=== PATIENT | male | born 1950 | race Caucasian/White ===

== ENCOUNTER 2019-07-08 15:40 | Emergency (ER) | payer MEDICARE ==
[2019-07-08] MEDS ORDERED: NS 0.9% 1000 ML** 1,000 ML IV ONE (15:53)
--- NOTE | 2019-07-08 15:53 | ED ---
Syncope/Near Syncope - HPI Summary HPI Summary: This pt is a68 y/o male presenting to [facility] via EMS for syncopal episode today. EMS reports pt was with friends when they witnessed the pt who was sitting on a chair stare off into space and slump over to the right side. Friends called EMS. Upon EMS arrival to scene pt had no complaints and did not want to come to the hospital. Per EMS pt had blood pressure of 80s/40s. While in the ambulance after EMS administered fluids, pt had blood pressure of 108 systolic. Blood glucose is 99 per EMS. Pt states he did not have any chest pain, palpitations, SOB prior to syncope. Currently he denies any chest pain, palpitations, SOB, or any other symptoms after syncopal episode. Pt admits to drinking beers and using marijuana. He does not know how many beers he drank. Per EMS pt had 4 beers. He notes he does not use oxygen at home at baseline. - History Of Current Complaint Hx Obtained From: Patient, EMS Onset/Duration: Still Present Timing: Hours Context: Witnessed Activity At Onset: At Rest Aggravating Factor(s): Nothing Alleviating Factor(s): Nothing Associated Signs And Symptoms: Other - NEGATIVE: chest pain, palpitations, SOB - Allergies/Home Medications Allergies/Adverse Reactions: Allergies Allergy/AdvReac Type Severity Reaction Status Date / Time No Known Allergies Allergy Verified 07/08/19 16:53 Home Medications: Home Medications Atorvastatin* [Lipitor*] 40 mg PO DAILY 07/08/19 [History Confirmed 07/08/19] Doxycycline (NF) 20 mg PO DAILY 07/08/19 [History Confirmed 07/08/19] Lisinopril TAB* [Prinivil TAB*] 20 mg PO DAILY 07/08/19 [History Confirmed 07/08] metFORMIN* [Glucophage 500 MG TAB *] 500 mg PO BID 07/08/19 [History Confirmed 07/08/19] PMH/Surg Hx/FS Hx/Imm Hx Endocrine/Hematology History: Reports: Hx Diabetes Cardiovascular History: Reports: Hx Hypertension - Family History Known Family History: Negative: Cardiac Disease - Social History Alcohol Use: Occasionally Substance Use Type: Reports: Marijuana Smoking Status (MU): Former Smoker Review of Systems Negative: Fever, Chills Negative: Chest Pain Negative: Shortness Of Breath Positive: Syncope All Other Systems Reviewed And Are Negative: Yes Physical Exam - Summary Physical Exam Summary: VITAL SIGNS: Reviewed. GENERAL: Patient is a well-developed and nourished male who is lying comfortable in the stretcher. Patient is not in any acute respiratory distress. HEAD AND FACE: No signs of trauma. No ecchymosis, hematomas or skull depressions. No sinus tenderness. EYES: PERRLA, EOMI x 2, No injected conjunctiva, no nystagmus. EARS: Hearing grossly intact. Ear canals and tympanic membranes are within normal limits. MOUTH: Oropharynx within normal limits. NECK: Supple, trachea is midline, no adenopathy, no JVD, no carotid bruit, no c- spine tenderness, neck with full ROM. CHEST: Symmetric, no tenderness at palpation. LUNGS: Clear to auscultation bilaterally. No wheezing or crackles. CVS: Regular rate and rhythm, S1 and S2 present, no murmurs or gallops appreciated. ABDOMEN: Soft, non-tender. No signs of distention. No rebound, no guarding, and no masses palpated. Bowel sounds are normal. EXTREMITIES: FROM in all major joints, no edema, no cyanosis or clubbing. NEURO: Alert and oriented x 3. No acute neurological deficits. Speech is normal and follows commands. SKIN: Dry and warm. Triage Information Reviewed: Yes Vital Signs Reviewed: Yes Procedures - Sedation Patient Received Moderate/Deep Sedation with Procedure: No Diagnostics - Laboratory Result Diagrams: 07/08/19 16:04 07/08/19 16:04 Lab Statement: Any lab studies that have been ordered have been reviewed, and results considered in the medical decision making process. - Radiology Chest XR Radiology Interpretation Completed By: Radiologist Summary of Radiographic Findings: IMPRESSION: Hyperinflation. No active cardiopulmonary disease. Dr. Cabezas has reviewed this report. - CT Brain CT CT Interpretation Completed By: Radiologist Summary of CT Findings: IMPRESSION: No acute intracranial pathology. Diffuse involutional change. Dr. Cabezas has reviewed this report. - EKG 17:33 Cardiac Rate: NL - at 68 bpm EKG Rhythm: Sinus Rhythm Summary of EKG Findings: Normal sinus rhythm at [address] elevations. Course/Dx Assessment/Plan: This pt is a 68 y/o male presenting to [facility] via EMS for syncopal episode today. EMS reports pt was with friends when they witnessed the pt who was sitting on a chair stare off into space and slump over to the right side. Friends called EMS. Upon EMS arrival to scene pt had no complaints and did not want to come to the hospital. Per EMS pt had blood pressure of 80s/40s. While in the ambulance after EMS administered fluids, pt had blood pressure of 108 systolic. Blood glucose is 99 per EMS. Pt states he did not have any chest pain, palpitations, SOB prior to syncope. Currently he denies any chest pain, palpitations, SOB, or any other symptoms after syncopal episode. Pt admits to drinking beers and using marijuana. He does not know how many beers he drank. Per EMS pt had 4 beers. He notes he does not use oxygen at home at baseline. Blood test results without any significant abnormality except for WBCs of 11.2, slight anemia, chloride 100, lactic acid is 2.8, and serum alcohol of 88. I believe that the lactic acid is slightly elevated secondary to the alcohol. EKG is a normal sinus rhythm without ST elevations. Head CT shows no acute intracranial pathology. Chest x-ray impression: Hyperinflation. No active cardiopulmonary disease. In the ED course the patient is alert and oriented 3. Patient reports that hes been better therefore he doesnt want to get admitted to the hospitalist. Therefore the patient was signing AGAINST MEDICAL ADVICE. I extensively discussed with the patient the benefits and risk of leaving AMA. I also discussed the alternatives to leaving AMA, however, the patient still insist to leave the hospital AMA. The patient is clinically sober , free from distracting injury, appears to have intact insight and judgment and reason and in my opinion has the capacity to make decisions. Patient has full capacity and is cognitively intact. The patient presents with syncope, I have explained that I am concerned with these symptoms and may represent arrhythmia or . The patient verbalizes understanding of my concerns. I have also explained the results of the labs and even though they are normal the primary nurse and the charge nurse also strongly recommended that the patient should not leave AMA. Patient understands the risks of leaving AMA, which includes but is not restricted to . Patient signed the AMA form. Patient was also advised to return to the ED if he changes his mind or if the symptoms worsen or other symptoms appear. Patient understands and agrees. Again, I discussed all the findings and test results with the patient. Patient was instructed to return to the emergency room immediately if any of the symptoms return or worsen. Plan of care was discussed with the patient and understands and agrees. All questions were answered at patient satisfaction. There were no further complaints or concerns. Patient signed AMA and he was discharged AMA. - Diagnoses Provider Diagnoses: Syncope Discharge ED - Sign-Out/Discharge Documenting (check all that apply): Patient Departure - Against medical advice - Discharge Plan Condition: Stable Disposition: AGAINST MEDICAL ADVICE Referrals: Adolph Ortiz MD [Primary Care Provider] - - Billing Disposition and Condition Condition: STABLE Disposition: Against Medical Advice - Attestation Statements Document Initiated by Ferdinandibal: Yes Documenting Scribe: Luz Marina Alcantar Provider For Whom Abena is Documenting (Include Credential): Adolph Cabezas MD Scribe Attestation: Luz Marina Lara, scribed for Adolph Cabezas MD on 07/08/19 at 1829. Scribe Documentation Reviewed: Yes Provider Attestation: The documentation as recorded by the Luz Marina phan accurately reflects the service I personally performed and the decisions made by Adolph valladares MD Status of Scribe Document: Viewed
[2019-07-08 16:15] LABS: ABS Eosinophils 0.4 10^3/ul (0-0.6); ABS Lymphocytes 3.1 10^3/ul (1.0-4.8); ABS Neutrophils 6.7 10^3/ul (1.5-7.7); Eosinophil % 3.3 %; Hematocrit 39 % (42-52); Hemoglobin 13.4 g/dL (14.0-18.0); Lymphocyte % 27.2 %; Mean Corpuscular HGB Conc 34 g/dL (31-36); Mean Corpuscular Hemoglobin 34 pg (27-31); Mean Corpuscular Volume 98 fL (80-94); Mean Platelet Volume 6.8 fL (7.4-10.4); Platelet Count 335 10^3/uL (150-450); Red Blood Count 3.98 10^6 /uL (4.18-5.48); Red Cell Distribution Width 13 % (10-15); White Blood Count 11.2 10^3/uL (3.5-10.8)
[2019-07-08 16:19] LABS: Activated Partial Thrombo Time 29.4 seconds (26.0-38.0); INR 1.09 (0.82-1.09)
[2019-07-08 16:31] LABS: Albumin 4.2 g/dL (3.2-5.2); Albumin/Globulin Ratio 1.6 (1-3); BUN/Creatinine Ratio 11.1 (8-20); Calcium 9.1 mg/dL (8.6-10.3); EGFR African American 90.7 (>60); Globulin 2.6 g/dL (2-4); Magnesium 1.9 mg/dL (1.9-2.7); Potassium 3.8 mmol/L (3.5-5.0); Total Bilirubin 0.3 mg/dL (0.2-1.0); Total Protein 6.8 g/dL (6.4-8.9)
[2019-07-08 17:34] LABS: TSH (Thyroid Stimulating Horm) 2.53 mcIU/mL (0.34-5.60)
[2019-07-08 18:43] VITALS: BP 113/70
== END 2019-07-08 18:21 | disposition left against medical advice (07) ==
LOC: ED 15:40
DX: R55 Syncope and collapse (principal); E11.9 Type 2 diabetes mellitus without complications; I10 Essential (primary) hypertension; Z87.891 Personal history of nicotine dependence
CPT/HCPCS: 36415; 70450; 71046; 80053; 80320; 82140; 82550; 83605; 83735; 83880; 84443; 84484; 85025; 85610; 85730; 93005; 96360; 99284; G0480

== ENCOUNTER 2021-09-25 09:46 | Inpatient (IN) ==
[2021-09-25 11:29] LABS: ABS Eosinophils 0.2 10^3/ul (0-0.6); ABS Lymphocytes 1.1 10^3/ul (1.0-4.8); ABS Monocytes 0.8 10^3/ul (0-0.8); ABS Neutrophils 4.3 10^3/ul (1.5-7.7); Eosinophil % 2.8 %; Hematocrit 40 % (42-52); Hemoglobin 13.5 g/dL (14.0-18.0); Lymphocyte % 17.5 %; Mean Corpuscular HGB Conc 34 g/dL (31-36); Mean Corpuscular Hemoglobin 35 pg (27-31); Mean Corpuscular Volume 102 fL (80-94); Mean Platelet Volume 7.7 fL (7.4-10.4); Platelet Count 337 10^3/uL (150-450); Red Blood Count 3.88 10^6 /uL (4.18-5.48); Red Cell Distribution Width 13 % (10-15); White Blood Count 6.4 10^3/uL (3.5-10.8)
[2021-09-25 11:44] LABS: ALT 67 U/L (7-52); AST 64 U/L (13-39); Albumin 4.3 g/dL (3.2-5.2); Albumin/Globulin Ratio 1.4 (1-3); Alkaline Phosphatase 90 U/L (35-149); Anion Gap 11 mmol/L (2-11); Blood Urea Nitrogen 13 mg/dL (6-24); CO2 Carbon Dioxide 28 mmol/L (22-32); Calcium 10.3 mg/dL (8.6-10.3); Chloride 104 mmol/L (101-111); Globulin 3.1 g/dL (2-4); Glucose 147 mg/dL (70-100); Potassium 3.5 mmol/L (3.5-5.0); Sodium 143 mmol/L (135-145); Total Protein 7.4 g/dL (6.4-8.9); eGFR CKD-EPI 89.5 (>60)
[2021-09-25 12:24] LABS: Acetaminophen < 15 mcg/mL; Alcohol, S < 13 mg/dL (<13); Salicylate < 2.50 mg/dL (<30)
[2021-09-25 12:39] LABS: TSH Ultra Thyroid Stim Horm 1.85 mcIU/mL (0.34-5.60)
[2021-09-25 19:11] LABS: C Reactive Protein 8.82 mg/L (<8.01)
[2021-09-25] MEDS ORDERED: Dextrose 50% Syringe 50 ml 25 GM/50 ML SYRINGE IV PUSH PRN (19:33)
[2021-09-25 19:37] LABS: Folate > 20.00 ng/mL (5.90-24.80)
[2021-09-25] MEDS ORDERED: Thiamine 100 MG/ML 2 ml VIAL (200 mg) IM ONE (19:37)
[2021-09-25 19:38] LABS: Vitamin B12 291 pg/mL (180-914)
[2021-09-26] MEDS: Enoxaparin 40 MG/0.4 ML SYR SUBCUT SCH ×2 (00:40→22:36)
[2021-09-26] MEDS ORDERED: Lorazepam PYXIS KEY PRN (02:05)
[2021-09-26] MEDS ORDERED: LORazepam 2 mg VIAL 1 ml IV PUSH ONE (02:06)
[2021-09-26 06:17] LABS: ABS Basophils 0.1 10^3/ul (0-0.2); ABS Eosinophils 0.3 10^3/ul (0-0.6); ABS Lymphocytes 0.9 10^3/ul (1.0-4.8); ABS Monocytes 0.8 10^3/ul (0-0.8); Eosinophil % 5.1 %; Hematocrit 37 % (42-52); Hemoglobin 12.6 g/dL (14.0-18.0); Lymphocyte % 15.2 %; Mean Corpuscular HGB Conc 34 g/dL (31-36); Mean Corpuscular Hemoglobin 35 pg (27-31); Mean Corpuscular Volume 102 fL (80-94); Mean Platelet Volume 7.8 fL (7.4-10.4); Nucleated Red Blood Cells % 0.1; Platelet Count 285 10^3/uL (150-450); Red Blood Count 3.64 10^6 /uL (4.18-5.48); Red Cell Distribution Width 13 % (10-15); White Blood Count 6.2 10^3/uL (3.5-10.8)
[2021-09-26 06:36] LABS: Calcium 9.7 mg/dL (8.6-10.3); Potassium 3.5 mmol/L (3.5-5.0); eGFR CKD-EPI 94.4 (>60)
[2021-09-26] MEDS: Multivitamins/Minerals TAB PO SCH (08:10)
[2021-09-26 11:32] LABS: Urine Appearance Cloudy; Urine Bilirubin Negative (Negative); Urine Blood Negative (Negative); Urine Color Amber; Urine Glucose Negative (Negative); Urine Ketones 2+ (Negative); Urine Nitrite Negative (Negative); Urine Protein 1+(30 mg/dL) (Negative); Urine Specific Gravity 1.021 (1.002-1.030); Urine Urobilinogen Negative (Negative)
[2021-09-26 11:43] LABS: Urine Bacteria Absent (Absent); Urine Red Blood Cell Trace(0-2/hpf) (Absent); Urine Squamous Epithelial Cell Present (Absent); Urine White Blood Cell Trace(0-5/hpf) (Absent)
[2021-09-26 11:54] LABS: Urine Benzodiazepine Screen None Detected (None Detect); Urine Cannabinoids Screen Presumptive Positive (None Detect); Urine Opiates Screen None Detected (None Detect)
[2021-09-26] MEDS: Thiamine 100 MG/ML 2 ml VIAL 500 MG in NS 0.9% 250 ml 250 ML IV SCH ×2 (12:53→22:29)
[2021-09-26] MEDS ORDERED: LORazepam 2 mg VIAL 1 ml IV PUSH PRN ×2 (15:20→19:00)
[2021-09-26] MEDS ORDERED: Haloperidol 5 mg/ml SDV IV/IM 5 MG/ML AMP IV SLOW PU PRN (18:57)
[2021-09-27] MEDS: Thiamine 100 MG/ML 2 ml VIAL 500 MG in NS 0.9% 250 ml 250 ML IV SCH ×3 (04:21→20:13)
[2021-09-27 09:18] LABS: ABS Basophils 0.1 10^3/ul (0-0.2); ABS Eosinophils 0.2 10^3/ul (0-0.6); ABS Lymphocytes 0.8 10^3/ul (1.0-4.8); ABS Monocytes 0.8 10^3/ul (0-0.8); ABS Neutrophils 5.3 10^3/ul (1.5-7.7); Eosinophil % 3.3 %; Hematocrit 38 % (42-52); Hemoglobin 13.1 g/dL (14.0-18.0); Lymphocyte % 11.3 %; Mean Corpuscular HGB Conc 34 g/dL (31-36); Mean Corpuscular Hemoglobin 35 pg (27-31); Mean Corpuscular Volume 101 fL (80-94); Mean Platelet Volume 7.6 fL (7.4-10.4); Platelet Count 307 10^3/uL (150-450); Red Blood Count 3.79 10^6 /uL (4.18-5.48); Red Cell Distribution Width 13 % (10-15); White Blood Count 7.3 10^3/uL (3.5-10.8)
[2021-09-27 09:35] LABS: Albumin 3.7 g/dL (3.2-5.2); Albumin/Globulin Ratio 1.3 (1-3); Calcium 9.5 mg/dL (8.6-10.3); Globulin 2.9 g/dL (2-4); Potassium 3.2 mmol/L (3.5-5.0); Total Protein 6.6 g/dL (6.4-8.9)
[2021-09-27] MEDS: Multivitamins/Minerals TAB PO SCH (10:04)
[2021-09-27 11:20] LABS: Magnesium 1.6 mg/dL (1.9-2.7)
[2021-09-27] MEDS: Potassium Chlor 20 meq TAB.ER PO SCH ×2 (12:36→23:15)
[2021-09-27] MEDS: Enoxaparin 40 MG/0.4 ML SYR SUBCUT SCH (21:36)
[2021-09-27] MEDS ORDERED: Magnesium Sulfate 2 gm BAG 2 GM/50 ML BAG IVPB ONE (21:44)
[2021-09-27] MEDS: LORazepam 2 mg VIAL 1 ml IV PUSH SCH (23:01)
[2021-09-28] MEDS: LORazepam 2 mg VIAL 1 ml IV PUSH SCH (02:21)
[2021-09-28] MEDS: Thiamine 100 MG/ML 2 ml VIAL 500 MG in NS 0.9% 250 ml 250 ML IV SCH ×3 (03:20→22:26)
[2021-09-28 04:15] LABS: ABS Eosinophils 0.1 10^3/ul (0-0.6); ABS Lymphocytes 1.9 10^3/ul (1.0-4.8); ABS Monocytes 1.2 10^3/ul (0-0.8); ABS Neutrophils 12.3 10^3/ul (1.5-7.7); Eosinophil % 0.4 %; Hematocrit 47 % (42-52); Hemoglobin 15.6 g/dL (14.0-18.0); Lymphocyte % 12.1 %; Mean Corpuscular HGB Conc 33 g/dL (31-36); Mean Corpuscular Hemoglobin 35 pg (27-31); Mean Corpuscular Volume 104 fL (80-94); Platelet Count 369 10^3/uL (150-450); Red Cell Distribution Width 13 % (10-15); White Blood Count 15.5 10^3/uL (3.5-10.8)
[2021-09-28 04:20] LABS: INR 1.32 (0.86-1.15)
[2021-09-28] MEDS ORDERED: Sodium Bicarbonate 8.4% SYR 50 ml SYRINGE ONE (04:21)
[2021-09-28 04:29] LABS: PCO2 Arterial > 121 mmHg (35-45)
[2021-09-28 04:32] LABS: PO2 Arterial < 38 mmHg (80-100)
[2021-09-28 04:33] LABS: Anion Gap 10 mmol/L (2-11); Blood Urea Nitrogen 7 mg/dL (6-24); CO2 Carbon Dioxide 25 mmol/L (22-32); Calcium 9.7 mg/dL (8.6-10.3); Chloride 101 mmol/L (101-111); Glucose 258 mg/dL (70-100); Magnesium 2.7 mg/dL (1.9-2.7); Potassium 3.8 mmol/L (3.5-5.0); Sodium 136 mmol/L (135-145)
[2021-09-28] MEDS ORDERED: NS 0.9% 1000 ml BAG 1,000 ML IV ONE (04:53)
[2021-09-28] MEDS ORDERED: Propofol 10 mg/ml 100 ML BTL 100 ML IV SCH (05:00)
[2021-09-28 05:11] LABS: Troponin I 0.04 ng/mL (<0.03)
[2021-09-28] MEDS ORDERED: Norepinephrine 16MCG/ML BAG NS 4,000 MCG/250 ML BAG IV ONE (05:13)
[2021-09-28 05:16] LABS: PCO2 Arterial 49 mmHg (35-45); PO2 Arterial 90 mmHg (80-100)
[2021-09-28] MEDS ORDERED: Norepinephrine 16MCG/ML BAG NS 4,000 MCG/250 ML BAG IV SCH (06:00)
[2021-09-28 08:33] LABS: Urine Appearance Cloudy; Urine Bilirubin Negative (Negative); Urine Blood Negative (Negative); Urine Color Yellow; Urine Glucose 2+(150 mg/dL) (Negative); Urine Ketones 2+ (Negative); Urine Nitrite Negative (Negative); Urine Protein 3+(>=500 mg/dL) (Negative); Urine Specific Gravity 1.013 (1.002-1.030); Urine Urobilinogen Negative (Negative)
[2021-09-28 09:12] LABS: Urine Bacteria Absent (Absent); Urine Red Blood Cell Absent (Absent); Urine Squamous Epithelial Cell Present (Absent); Urine White Blood Cell Absent (Absent)
[2021-09-28 10:10] LABS: Troponin I 0.25 ng/mL (<0.03)
[2021-09-28] MEDS: Chlorhexidine MOUTHWASH 0.12% 15 ML UDC TOPICAL SCH ×3 (12:25→20:26)
[2021-09-28] MEDS: Hydrocortisone INJ 100 MG/2ML 2 ML VIAL IV SCH ×2 (12:25→20:26)
[2021-09-28] MEDS: Famotidine IV 10 MG/ML 2 ml VIAL (20 mg) IV SLOW PU SCH ×2 (12:25→20:27)
[2021-09-28] MEDS ORDERED: Acetaminophen IV 1 GM/100ML 100 ML IV ONE (14:49)
[2021-09-28] MEDS ORDERED: Acetaminophen IV 1000 MG/100ML IVPB PRN (15:36)
[2021-09-28] MEDS ORDERED: Piperacillin/Tazobac ADVAN 3.375 GM in NS 0.9% 100 ml BAG 100 ML IV ONE (16:40)
[2021-09-28] MEDS ORDERED: Zosyn per Pharmacy NOTE FOLLOW UP SCH (17:00)
[2021-09-28] MEDS ORDERED: Lorazepam PYXIS KEY ONE (17:02)
[2021-09-28] MEDS ORDERED: LORazepam 2 mg VIAL 1 ml ONE (17:02)
[2021-09-28] MEDS: Enoxaparin 40 MG/0.4 ML SYR SUBCUT SCH (20:27)
[2021-09-28] MEDS: ZOSYN 3.375 GM Q8H per EXTENDED INFUSION IV SCH (20:27)
[2021-09-28] MEDS ORDERED: Propofol 10 MG/ML 20 ML BTL ONE (22:25)
[2021-09-28] MEDS: Propofol 10 mg/ml 100 ML BTL 100 ML IV SCH (22:29)
[2021-09-29] MEDS: Chlorhexidine MOUTHWASH 0.12% 15 ML UDC TOPICAL SCH ×7 (01:08→23:02)
[2021-09-29] MEDS: Hydrocortisone INJ 100 MG/2ML 2 ML VIAL IV SCH ×3 (04:36→19:23)
[2021-09-29] MEDS: ZOSYN 3.375 GM Q8H per EXTENDED INFUSION IV SCH ×3 (04:37→19:22)
[2021-09-29] MEDS: Thiamine 100 MG/ML 2 ml VIAL 500 MG in NS 0.9% 250 ml 250 ML IV SCH (05:06)
[2021-09-29] MEDS: Propofol 10 mg/ml 100 ML BTL 100 ML IV SCH ×3 (05:35→23:32)
[2021-09-29 06:24] LABS: Albumin 3.2 g/dL (3.2-5.2); CO2 Carbon Dioxide 21 mmol/L (22-32); Calcium 8.7 mg/dL (8.6-10.3); Chloride 107 mmol/L (101-111); Magnesium 2.3 mg/dL (1.9-2.7); Sodium 136 mmol/L (135-145)
[2021-09-29 06:30] LABS: ALT 35 U/L (7-52); Albumin/Globulin Ratio 1.1 (1-3); Alkaline Phosphatase 63 U/L (35-149); Blood Urea Nitrogen 21 mg/dL (6-24); Globulin 2.8 g/dL (2-4); Glucose 134 mg/dL (70-100); eGFR CKD-EPI 92.3 (>60)
[2021-09-29 06:37] LABS: Anion Gap 8 mmol/L (2-11); Phosphorus 2.9 mg/dL (2.5-5.0); Potassium 3.7 mmol/L (3.5-5.0)
[2021-09-29 06:38] LABS: AST 36 U/L (13-39)
[2021-09-29 06:40] LABS: Hematocrit 33 % (42-52); Mean Corpuscular Volume 102 fL (80-94); Mean Platelet Volume 9.8 fL (7.4-10.4); Platelet Count 216 10^3/uL (150-450); Red Blood Count 3.21 10^6 /uL (4.18-5.48); Red Cell Distribution Width 14 % (10-15); White Blood Count 8.3 10^3/uL (3.5-10.8)
[2021-09-29 06:41] LABS: Mean Corpuscular HGB Conc 33 g/dL (31-36); Mean Corpuscular Hemoglobin 34 pg (27-31)
[2021-09-29] MEDS ORDERED: Propofol 10 mg/ml 100 ML BTL 100 ML IV SCH (07:05)
[2021-09-29] MEDS ORDERED: Labetalol IV 5 MG/ML 20 ml VIAL IV PUSH PRN (07:05)
[2021-09-29 07:07] LABS: INR 1.38 (0.86-1.15)
[2021-09-29] MEDS ORDERED: Lorazepam PYXIS KEY PRN (08:32)
[2021-09-29] MEDS ORDERED: LORazepam 2 mg VIAL 1 ml IV PUSH PRN ×3 (08:32→12:22)
[2021-09-29] MEDS: Famotidine IV 10 MG/ML 2 ml VIAL (20 mg) IV SLOW PU SCH ×2 (08:59→19:22)
[2021-09-29] MEDS ORDERED: Meperidine 50 mg/ml SYRINGE 1 ml IV PRN (09:18)
[2021-09-29 10:13] LABS: Troponin I 0.19 ng/mL (<0.03)
[2021-09-29] MEDS: Metoprolol Tartrate 5 mg VIAL 5 ml VIAL (1 mg/ml) IV PRN (13:38)
[2021-09-29] MEDS ORDERED: Lactated Ringers 1000 ml BAG 500 ML IV SCH (16:00)
[2021-09-29] MEDS: Lactated Ringers 1000 ml BAG 1,000 ML IV SCH ×2 (17:01→21:29)
[2021-09-29] MEDS: Thiamine 100 MG/ML 2 ml VIAL 250 MG in NS 0.9% 100 ml BAG 100 ML IV SCH (17:46)
[2021-09-29] MEDS: Enoxaparin 40 MG/0.4 ML SYR SUBCUT SCH (19:22)
[2021-09-30] MEDS: ZOSYN 3.375 GM Q8H per EXTENDED INFUSION IV SCH ×3 (03:43→20:15)
[2021-09-30] MEDS: Hydrocortisone INJ 100 MG/2ML 2 ML VIAL IV SCH ×3 (03:43→19:18)
[2021-09-30] MEDS: Chlorhexidine MOUTHWASH 0.12% 15 ML UDC TOPICAL SCH ×5 (03:43→19:18)
[2021-09-30] MEDS: Propofol 10 mg/ml 100 ML BTL 100 ML IV SCH ×3 (03:57→20:33)
[2021-09-30 04:01] LABS: Hematocrit 36 % (42-52); Mean Corpuscular HGB Conc 33 g/dL (31-36); Mean Corpuscular Hemoglobin 34 pg (27-31); Mean Corpuscular Volume 102 fL (80-94); Mean Platelet Volume 8.6 fL (7.4-10.4); Platelet Count 320 10^3/uL (150-450); Red Blood Count 3.53 10^6 /uL (4.18-5.48); Red Cell Distribution Width 13 % (10-15)
[2021-09-30 04:17] LABS: Calcium 8.8 mg/dL (8.6-10.3); eGFR CKD-EPI 92.7 (>60)
[2021-09-30 04:19] LABS: Potassium 3.5 mmol/L (3.5-5.0)
[2021-09-30] MEDS: Lactated Ringers 1000 ml BAG 1,000 ML IV SCH (07:36)
[2021-09-30] MEDS: Famotidine IV 10 MG/ML 2 ml VIAL (20 mg) IV SLOW PU SCH ×2 (07:54→20:16)
[2021-09-30] MEDS ORDERED: Potassium Chloride LIQUID 20 MEQ/15 ML LIQUID PO ONE (07:57)
[2021-09-30] MEDS ORDERED: Dextrose 50% Syringe 50 ml 25 GM/50 ML SYRINGE IV PUSH PRN (17:57)
[2021-09-30] MEDS: Metoprolol Tartrate 5 mg VIAL 5 ml VIAL (1 mg/ml) IV PRN (18:01)
[2021-09-30] MEDS: Thiamine 100 MG/ML 2 ml VIAL 250 MG in NS 0.9% 100 ml BAG 100 ML IV SCH (18:40)
[2021-09-30] MEDS: Enoxaparin 40 MG/0.4 ML SYR SUBCUT SCH (20:16)
[2021-10-01] MEDS: Chlorhexidine MOUTHWASH 0.12% 15 ML UDC TOPICAL SCH ×4 (01:32→10:32)
[2021-10-01] MEDS: Metoprolol Tartrate 5 mg VIAL 5 ml VIAL (1 mg/ml) IV PRN ×2 (02:07→12:17)
[2021-10-01] MEDS: Propofol 10 mg/ml 100 ML BTL 100 ML IV SCH ×2 (03:13→06:08)
[2021-10-01] MEDS: ZOSYN 3.375 GM Q8H per EXTENDED INFUSION IV SCH ×3 (04:13→20:05)
[2021-10-01] MEDS: Hydrocortisone INJ 100 MG/2ML 2 ML VIAL IV SCH ×2 (04:13→14:27)
[2021-10-01 05:16] LABS: Hematocrit 33 % (42-52); Mean Corpuscular HGB Conc 33 g/dL (31-36); Mean Corpuscular Hemoglobin 34 pg (27-31); Mean Corpuscular Volume 102 fL (80-94); Mean Platelet Volume 7.9 fL (7.4-10.4); Platelet Count 270 10^3/uL (150-450); Red Blood Count 3.23 10^6 /uL (4.18-5.48); Red Cell Distribution Width 13 % (10-15); White Blood Count 7.6 10^3/uL (3.5-10.8)
[2021-10-01 05:31] LABS: Calcium 8.3 mg/dL (8.6-10.3); Magnesium 2.4 mg/dL (1.9-2.7); Phosphorus 3.2 mg/dL (2.5-5.0); Potassium 3.4 mmol/L (3.5-5.0)
[2021-10-01 05:59] LABS: PCO2 Arterial 37 mmHg (35-45); PO2 Arterial 114 mmHg (80-100)
[2021-10-01] MEDS: Famotidine IV 10 MG/ML 2 ml VIAL (20 mg) IV SLOW PU SCH ×2 (07:28→20:06)
[2021-10-01] MEDS ORDERED: Potassium Chloride LIQUID 20 MEQ/15 ML LIQUID PO ONE ×2 (07:45→14:08)
[2021-10-01 11:38] LABS: HDL Cholesterol 43.4 mg/dL
[2021-10-01] MEDS ORDERED: hydrALAZINE 20 mg/ml 1 ML Vial IV IV SLOW PU PRN ×2 (14:04→14:26)
[2021-10-01] MEDS ORDERED: Labetalol IV 5 MG/ML 20 ml VIAL ONE (14:22)
[2021-10-01] MEDS: Labetalol IV 5 MG/ML 20 ml VIAL IV PUSH PRN (14:24)
[2021-10-01] MEDS: Thiamine 100 MG/ML 2 ml VIAL 250 MG in NS 0.9% 100 ml BAG 100 ML IV SCH (15:50)
[2021-10-01] MEDS: cloNIDine 0.2 MG PATCH 0.2 MG/24 HR 7 DAY PATCH TRANSDERM SCH (16:29)
[2021-10-01] MEDS: Acetaminophen IV 1 GM/100ML 100 ML IV PRN (16:30)
[2021-10-01] MEDS: Enoxaparin 40 MG/0.4 ML SYR SUBCUT SCH (20:05)
[2021-10-01] MEDS: niCARdipine 0.1MG/ML IVPREMIX 20 MG/200 ML BAG IV SCH (21:58)
[2021-10-01 23:47] LABS: Urine Potassium Concentration 15.7 mmol/L
[2021-10-01 23:56] LABS: Calcium 8.9 mg/dL (8.6-10.3); Potassium 3.2 mmol/L (3.5-5.0); eGFR CKD-EPI 92.7 (>60)
[2021-10-02] MEDS ORDERED: KCL 20 MEQ/100 ML IVPREMIX 0 MEQ/0 ML BAG ONE (00:26)
[2021-10-02] MEDS: KCL 20 MEQ/100 ML IVPREMIX 20 MEQ/100 ML BAG IV SCH ×5 (00:47→09:30)
[2021-10-02] MEDS ORDERED: NS 0.45% 1000 ml BAG 1,000 ML IV SCH (01:00)
[2021-10-02 01:15] LABS: Urine Osmo 450 mOsm/kg (150-1150)
[2021-10-02 01:16] LABS: Osmolality Serum 316 mOsm/kg (275-295)
[2021-10-02] MEDS: niCARdipine 0.1MG/ML IVPREMIX 20 MG/200 ML BAG IV SCH ×2 (01:26→09:53)
[2021-10-02] MEDS: Hydrocortisone INJ 100 MG/2ML 2 ML VIAL IV SCH ×2 (03:02→14:28)
[2021-10-02] MEDS: ZOSYN 3.375 GM Q8H per EXTENDED INFUSION IV SCH ×3 (04:03→20:47)
[2021-10-02 04:28] LABS: Hematocrit 37 % (42-52); Hemoglobin 12.3 g/dL (14.0-18.0); Mean Corpuscular HGB Conc 33 g/dL (31-36); Mean Corpuscular Hemoglobin 34 pg (27-31); Mean Corpuscular Volume 101 fL (80-94); Mean Platelet Volume 8.1 fL (7.4-10.4); Platelet Count 307 10^3/uL (150-450); Red Blood Count 3.69 10^6 /uL (4.18-5.48); Red Cell Distribution Width 13 % (10-15); White Blood Count 11.6 10^3/uL (3.5-10.8)
[2021-10-02 05:41] LABS: Calcium 8.5 mg/dL (8.6-10.3); Magnesium 2.1 mg/dL (1.9-2.7); Potassium 3.3 mmol/L (3.5-5.0)
[2021-10-02 05:46] LABS: Phosphorus 2.1 mg/dL (2.5-5.0); eGFR CKD-EPI 103.1 (>60)
[2021-10-02] MEDS ORDERED: NS 0.45% KCl 20 Meq 1000 ml 1,000 ML IV SCH ×3 (06:00→12:18)
[2021-10-02] MEDS: Famotidine IV 10 MG/ML 2 ml VIAL (20 mg) IV SLOW PU SCH ×2 (07:26→20:48)
[2021-10-02] MEDS: Acetaminophen IV 1 GM/100ML 100 ML IV PRN (07:59)
[2021-10-02] MEDS ORDERED: Potassium Phosphate IV 15 MMOLE in NS 0.9% 250 ml 250 ML IVPB ONE (08:00)
[2021-10-02 11:57] LABS: Calcium 8.2 mg/dL (8.6-10.3); eGFR CKD-EPI 99.7 (>60)
[2021-10-02 11:59] LABS: Potassium 4.5 mmol/L (3.5-5.0)
[2021-10-02] MEDS ORDERED: Desmopressin Acetate 4 MCG/ML 1 ML SDV SUBCUT ONE ×2 (12:16)
[2021-10-02 12:42] LABS: Urine Osmo 441 mOsm/kg (150-1150)
[2021-10-02 14:58] LABS: Urine Osmo 493 mOsm/kg (150-1150)
[2021-10-02] MEDS: Thiamine 100 MG/ML 2 ml VIAL 250 MG in NS 0.9% 100 ml BAG 100 ML IV SCH (15:19)
[2021-10-02 15:50] LABS: CO2 Carbon Dioxide 24 mmol/L (22-32); Calcium 8.2 mg/dL (8.6-10.3); Sodium 143 mmol/L (135-145)
[2021-10-02 15:55] LABS: Blood Urea Nitrogen 16 mg/dL (6-24); Glucose 161 mg/dL (70-100); eGFR CKD-EPI 100.6 (>60)
[2021-10-02 15:59] LABS: Chloride 112 mmol/L (101-111)
[2021-10-02 16:28] LABS: Anion Gap 7 mmol/L (2-11)
[2021-10-02] MEDS: Enoxaparin 40 MG/0.4 ML SYR SUBCUT SCH (20:47)
[2021-10-03 00:18] LABS: Calcium 8.4 mg/dL (8.6-10.3); Potassium 3.7 mmol/L (3.5-5.0)
[2021-10-03] MEDS ORDERED: Potassium Chlor 20 meq TAB.ER PO ONE (00:21)
[2021-10-03 00:24] LABS: eGFR CKD-EPI 96.7 (>60)
[2021-10-03 04:40] LABS: ABS Eosinophils 0.3 10^3/ul (0-0.6); ABS Lymphocytes 1.1 10^3/ul (1.0-4.8); ABS Monocytes 1.3 10^3/ul (0-0.8); ABS Neutrophils 5.4 10^3/ul (1.5-7.7); Eosinophil % 4.2 %; Hematocrit 37 % (42-52); Hemoglobin 12.3 g/dL (14.0-18.0); Mean Corpuscular HGB Conc 34 g/dL (31-36); Mean Corpuscular Hemoglobin 34 pg (27-31); Mean Corpuscular Volume 101 fL (80-94); Mean Platelet Volume 8.2 fL (7.4-10.4); Platelet Count 280 10^3/uL (150-450); Red Blood Count 3.65 10^6 /uL (4.18-5.48); Red Cell Distribution Width 13 % (10-15); White Blood Count 8.2 10^3/uL (3.5-10.8)
[2021-10-03] MEDS: Hydrocortisone INJ 100 MG/2ML 2 ML VIAL IV SCH (04:45)
[2021-10-03] MEDS: ZOSYN 3.375 GM Q8H per EXTENDED INFUSION IV SCH ×3 (04:46→19:43)
[2021-10-03 04:58] LABS: Calcium 8.6 mg/dL (8.6-10.3); Phosphorus 2.9 mg/dL (2.5-5.0); Potassium 3.4 mmol/L (3.5-5.0); eGFR CKD-EPI 98.3 (>60)
[2021-10-03] MEDS: KCL 20 MEQ/100 ML IVPREMIX 20 MEQ/100 ML BAG IV SCH ×3 (06:32→10:44)
[2021-10-03] MEDS ORDERED: Multivitamins/Minerals TAB PO SCH (09:00)
[2021-10-03 10:07] LABS: Anti-Glial/Neuronal Nuc Ab-1 A Negative titer (<1:240); Anti-Neuronal Nuclear Ab Type1 Negative titer (<1:240); Anti-Neuronal Nuclear Ab Type2 Negative titer (<1:240); Anti-Neuronal Nuclear Ab Type3 Negative titer (<1:240); CRMP-5 IgG Antibody Negative titer (<1:240); Purkinje Cell Cytoplasm Typ Tr Negative titer (<1:240); Purkinje Cell Cytoplasm Type 1 Negative titer (<1:240); Purkinje Cell Cytoplasm Type 2 Negative titer (<1:240)
[2021-10-03] MEDS: Labetalol IV 5 MG/ML 20 ml VIAL IV PUSH PRN ×2 (12:02→20:05)
[2021-10-03] MEDS ORDERED: Lorazepam PYXIS KEY ONE (14:15)
[2021-10-03] MEDS: LORazepam 2 mg VIAL 1 ml IV PUSH ONE ×2 (14:17→15:34)
[2021-10-03] MEDS: Thiamine 100 MG/ML 2 ml VIAL 250 MG in NS 0.9% 100 ml BAG 100 ML IV SCH (18:01)
[2021-10-03] MEDS: Enoxaparin 40 MG/0.4 ML SYR SUBCUT SCH (19:45)
[2021-10-04 04:19] LABS: Hematocrit 40 % (42-52); Hemoglobin 13.4 g/dL (14.0-18.0); Mean Corpuscular HGB Conc 34 g/dL (31-36); Mean Corpuscular Hemoglobin 34 pg (27-31); Mean Corpuscular Volume 101 fL (80-94); Mean Platelet Volume 7.8 fL (7.4-10.4); Platelet Count 266 10^3/uL (150-450); Red Blood Count 3.92 10^6 /uL (4.18-5.48); Red Cell Distribution Width 13 % (10-15)
[2021-10-04 04:32] LABS: Magnesium 1.9 mg/dL (1.9-2.7); Phosphorus 3.5 mg/dL (2.5-5.0); Potassium 3.8 mmol/L (3.5-5.0); eGFR CKD-EPI 96.3 (>60)
[2021-10-04 04:46] LABS: RBC Morphology Normal (Normal)
[2021-10-04 04:47] LABS: ABS Eosinophils 0.4 10^3/ul (0-0.6); ABS Lymphocytes 0.6 10^3/ul (1.0-4.8); ABS Monocytes 1.3 10^3/ul (0-0.8); ABS Neutrophils 6.7 10^3/ul (1.5-7.7); Eosinophil % 4.4 %; Lymphocyte % 6.8 %
[2021-10-04] MEDS ORDERED: Potassium Chlor 20 meq TAB.ER PO ONE (05:37)
[2021-10-04] MEDS: ZOSYN 3.375 GM Q8H per EXTENDED INFUSION IV SCH ×3 (05:57→21:50)
[2021-10-04] MEDS: Multivitamins ADULT w/MIN LIQ 15 ML UDC PO SCH (08:30)
[2021-10-04] MEDS: Enoxaparin 40 MG/0.4 ML SYR SUBCUT SCH (20:08)
[2021-10-05] MEDS: ZOSYN 3.375 GM Q8H per EXTENDED INFUSION IV SCH ×3 (04:15→22:24)
[2021-10-05 06:45] LABS: ABS Eosinophils 0.5 10^3/ul (0-0.6); ABS Lymphocytes 0.6 10^3/ul (1.0-4.8); ABS Monocytes 1.5 10^3/ul (0-0.8); Eosinophil % 5.6 %; Hematocrit 40 % (42-52); Hemoglobin 13.5 g/dL (14.0-18.0); Lymphocyte % 6.4 %; Mean Corpuscular HGB Conc 34 g/dL (31-36); Mean Corpuscular Hemoglobin 34 pg (27-31); Mean Corpuscular Volume 100 fL (80-94); Mean Platelet Volume 7.7 fL (7.4-10.4); Platelet Count 271 10^3/uL (150-450); Red Blood Count 3.97 10^6 /uL (4.18-5.48); Red Cell Distribution Width 13 % (10-15); White Blood Count 9.7 10^3/uL (3.5-10.8)
[2021-10-05 07:12] LABS: Calcium 9.1 mg/dL (8.6-10.3); Phosphorus 3.3 mg/dL (2.5-5.0); Potassium 3.8 mmol/L (3.5-5.0); eGFR CKD-EPI 94.8 (>60)
[2021-10-05] MEDS ORDERED: Dextrose 50% Syringe 50 ml 25 GM/50 ML SYRINGE IV PUSH PRN (08:42)
[2021-10-05] MEDS: Multivitamins ADULT w/MIN LIQ 15 ML UDC PO SCH (12:07)
[2021-10-05] MEDS ORDERED: Albuterol/Ipratropium NEB.SOL (2.5/0.5 MG) 3 ML NEB.SOLN INH PRN ×2 (13:09→18:47)
[2021-10-05] MEDS ORDERED: Albuterol/Ipratropium NEB.SOL (2.5/0.5 MG) 3 ML NEB.SOLN INH SCH (15:00)
[2021-10-05] MEDS: Enoxaparin 40 MG/0.4 ML SYR SUBCUT SCH (19:59)
[2021-10-06] MEDS: ZOSYN 3.375 GM Q8H per EXTENDED INFUSION IV SCH (04:54)
[2021-10-06 05:53] LABS: Hematocrit 39 % (42-52); Hemoglobin 13.2 g/dL (14.0-18.0); Mean Corpuscular HGB Conc 34 g/dL (31-36); Mean Corpuscular Hemoglobin 34 pg (27-31); Mean Corpuscular Volume 100 fL (80-94); Mean Platelet Volume 7.9 fL (7.4-10.4); Platelet Count 311 10^3/uL (150-450); Red Blood Count 3.88 10^6 /uL (4.18-5.48); Red Cell Distribution Width 13 % (10-15); White Blood Count 9.6 10^3/uL (3.5-10.8)
[2021-10-06 06:15] LABS: Magnesium 1.9 mg/dL (1.9-2.7); Potassium 3.2 mmol/L (3.5-5.0); eGFR CKD-EPI 96.7 (>60)
[2021-10-06] MEDS ORDERED: Potassium Chlor 20 meq TAB.ER PO ONE (06:57)
[2021-10-06] MEDS: KCL 20 MEQ/100 ML IVPREMIX 20 MEQ/100 ML BAG IV SCH ×2 (10:00→13:39)
[2021-10-06] MEDS: Multivitamins ADULT w/MIN LIQ 15 ML UDC PO SCH (12:38)
[2021-10-06] MEDS: Enoxaparin 40 MG/0.4 ML SYR SUBCUT SCH (20:07)
[2021-10-07] MEDS: Labetalol IV 5 MG/ML 20 ml VIAL IV PUSH PRN (08:24)
[2021-10-07 08:26] LABS: Calcium 9.4 mg/dL (8.6-10.3); Magnesium 1.9 mg/dL (1.9-2.7); Potassium 3.8 mmol/L (3.5-5.0); eGFR CKD-EPI 99.7 (>60)
[2021-10-07] MEDS: Multivitamins ADULT w/MIN LIQ 15 ML UDC PO SCH (08:30)
[2021-10-07] MEDS: Enoxaparin 40 MG/0.4 ML SYR SUBCUT SCH (19:51)
[2021-10-08 06:35] LABS: Calcium 9.1 mg/dL (8.6-10.3); Magnesium 1.8 mg/dL (1.9-2.7); Phosphorus 2.9 mg/dL (2.5-5.0); Potassium 3.5 mmol/L (3.5-5.0); eGFR CKD-EPI 98.8 (>60)
[2021-10-08] MEDS: Multivitamins ADULT w/MIN LIQ 15 ML UDC PO SCH (10:01)
[2021-10-08 10:29] LABS: PSA Screening Total 0.056 ng/mL (0-4.000)
[2021-10-08] MEDS: cloNIDine 0.2 MG PATCH 0.2 MG/24 HR 7 DAY PATCH TRANSDERM SCH (17:55)
[2021-10-08] MEDS: Enoxaparin 40 MG/0.4 ML SYR SUBCUT SCH (19:57)
[2021-10-09] MEDS ORDERED: cloNIDine 0.2 MG PATCH 0.2 MG/24 HR 7 DAY PATCH TRANSDERM SCH (10:00)
[2021-10-09] MEDS: Multivitamins ADULT w/MIN LIQ 15 ML UDC PO SCH (10:36)
[2021-10-09] MEDS: Enoxaparin 40 MG/0.4 ML SYR SUBCUT SCH (21:37)
[2021-10-10] MEDS: Multivitamins ADULT w/MIN LIQ 15 ML UDC PO SCH (07:51)
[2021-10-10] MEDS: Enoxaparin 40 MG/0.4 ML SYR SUBCUT SCH (20:45)
[2021-10-11] MEDS: Multivitamins ADULT w/MIN LIQ 15 ML UDC PO SCH (10:42)
[2021-10-11] MEDS: Enoxaparin 40 MG/0.4 ML SYR SUBCUT SCH (21:15)
[2021-10-12] MEDS: Multivitamins ADULT w/MIN LIQ 15 ML UDC PO SCH (11:09)
[2021-10-12] MEDS: Polyethylene Glycol 3350 17 GM PACKET PO SCH (12:53)
[2021-10-12] MEDS: Enoxaparin 40 MG/0.4 ML SYR SUBCUT SCH (19:42)
[2021-10-13] MEDS: Multivitamins ADULT w/MIN LIQ 15 ML UDC PO SCH (10:24)
[2021-10-13] MEDS: Polyethylene Glycol 3350 17 GM PACKET PO SCH (10:27)
[2021-10-13] MEDS: Enoxaparin 40 MG/0.4 ML SYR SUBCUT SCH (21:59)
[2021-10-14] MEDS: Polyethylene Glycol 3350 17 GM PACKET PO SCH (08:22)
[2021-10-14] MEDS: Multivitamins ADULT w/MIN LIQ 15 ML UDC PO SCH (08:22)
[2021-10-14] MEDS: Enoxaparin 40 MG/0.4 ML SYR SUBCUT SCH (20:51)
[2021-10-15] MEDS: Multivitamins ADULT w/MIN LIQ 15 ML UDC PO SCH (10:54)
[2021-10-15] MEDS: Polyethylene Glycol 3350 17 GM PACKET PO SCH (10:54)
[2021-10-15] MEDS: Enoxaparin 40 MG/0.4 ML SYR SUBCUT SCH (21:27)
[2021-10-16 07:29] LABS: Hematocrit 40 % (42-52); Hemoglobin 13.8 g/dL (14.0-18.0); Mean Platelet Volume 7.7 fL (7.4-10.4); Platelet Count 349 10^3/uL (150-450)
[2021-10-16 07:45] LABS: eGFR CKD-EPI 94.4 (>60)
[2021-10-16] MEDS: Polyethylene Glycol 3350 17 GM PACKET PO SCH (10:47)
[2021-10-16] MEDS: Multivitamins ADULT w/MIN LIQ 15 ML UDC PO SCH (10:47)
[2021-10-16] MEDS: Enoxaparin 40 MG/0.4 ML SYR SUBCUT SCH (20:32)
[2021-10-17 06:48] LABS: Calcium 9.4 mg/dL (8.6-10.3); Magnesium 1.5 mg/dL (1.9-2.7); Phosphorus 3.7 mg/dL (2.5-5.0); Potassium 3.7 mmol/L (3.5-5.0); eGFR CKD-EPI 93.7 (>60)
[2021-10-17] MEDS: Polyethylene Glycol 3350 17 GM PACKET PO SCH (08:28)
[2021-10-17] MEDS ORDERED: Magnesium Sulfate 2 gm BAG 2 GM/50 ML BAG IVPB ONE (08:42)
[2021-10-17] MEDS: Multivitamins ADULT w/MIN LIQ 15 ML UDC PO SCH (11:34)
[2021-10-17] MEDS ORDERED: Lactated Ringers 1000 ml BAG 1,000 ML IV SCH (12:00)
[2021-10-17] MEDS: Enoxaparin 40 MG/0.4 ML SYR SUBCUT SCH (20:05)
[2021-10-18 05:06] LABS: Calcium 9.2 mg/dL (8.6-10.3); Magnesium 1.9 mg/dL (1.9-2.7); Potassium 3.9 mmol/L (3.5-5.0); eGFR CKD-EPI 92.7 (>60)
[2021-10-18] MEDS: Multivitamins ADULT w/MIN LIQ 15 ML UDC PO SCH (09:32)
[2021-10-18] MEDS: Polyethylene Glycol 3350 17 GM PACKET PO SCH (09:32)
[2021-10-18 11:45] VITALS: BP 120/59
== END 2021-10-18 13:35 | disposition swing bed (61) | DRG 896 ==
LOC: ED 09:46 → EDHOLD 09:46 → SUATTDRO 18:57 → MED 23:09 → SUATTDRO 09-27 10:00 → ICU 09-28 04:52 → MED 10-04 16:04
PROVIDERS: ADMIT Hospitalist; ATTEND Student in an Organized Health Care Education/Training Program

== ENCOUNTER 2021-10-18 13:51 | Inpatient (IN) ==
[2021-10-18] MEDS ORDERED: Albuterol/Ipratropium NEB.SOL (2.5/0.5 MG) 3 ML NEB.SOLN INH PRN (14:08)
[2021-10-18] MEDS: Enoxaparin 40 MG/0.4 ML SYR SUBCUT SCH (20:02)
[2021-10-19] MEDS: Polyethylene Glycol 3350 17 GM PACKET PO SCH (07:35)
[2021-10-19] MEDS: Multivitamins/Minerals TAB PO SCH (07:35)
[2021-10-19] MEDS: Enoxaparin 40 MG/0.4 ML SYR SUBCUT SCH (20:20)
[2021-10-20] MEDS: Polyethylene Glycol 3350 17 GM PACKET PO SCH (09:44)
[2021-10-20] MEDS: Multivitamins/Minerals TAB PO SCH (09:44)
[2021-10-20] MEDS: Enoxaparin 40 MG/0.4 ML SYR SUBCUT SCH ×2 (21:42→23:17)
[2021-10-21] MEDS: Multivitamins/Minerals TAB PO SCH (08:09)
[2021-10-21] MEDS: Polyethylene Glycol 3350 17 GM PACKET PO SCH (08:11)
[2021-10-21] MEDS: Enoxaparin 40 MG/0.4 ML SYR SUBCUT SCH (21:00)
[2021-10-22] MEDS: Polyethylene Glycol 3350 17 GM PACKET PO SCH (07:58)
[2021-10-22] MEDS: Multivitamins/Minerals TAB PO SCH (07:58)
[2021-10-22] MEDS: Enoxaparin 40 MG/0.4 ML SYR SUBCUT SCH (19:51)
[2021-10-23] MEDS: Polyethylene Glycol 3350 17 GM PACKET PO SCH (08:15)
[2021-10-23] MEDS: Multivitamins/Minerals TAB PO SCH (08:16)
[2021-10-23] MEDS: Enoxaparin 40 MG/0.4 ML SYR SUBCUT SCH (21:13)
[2021-10-24] MEDS: Multivitamins/Minerals TAB PO SCH (09:02)
[2021-10-24] MEDS: Polyethylene Glycol 3350 17 GM PACKET PO SCH (09:04)
[2021-10-24] MEDS: Enoxaparin 40 MG/0.4 ML SYR SUBCUT SCH (21:21)
[2021-10-25] MEDS: Multivitamins/Minerals TAB PO SCH (08:51)
[2021-10-25] MEDS: Polyethylene Glycol 3350 17 GM PACKET PO SCH (08:51)
[2021-10-25] MEDS: Enoxaparin 40 MG/0.4 ML SYR SUBCUT SCH ×2 (20:34→21:53)
[2021-10-26] MEDS: Multivitamins/Minerals TAB PO SCH (08:02)
[2021-10-26] MEDS: Polyethylene Glycol 3350 17 GM PACKET PO SCH (08:03)
[2021-10-26] MEDS: Enoxaparin 40 MG/0.4 ML SYR SUBCUT SCH (19:57)
[2021-10-27 08:50] LABS: eGFR CKD-EPI 69.1 (>60)
[2021-10-27] MEDS: Multivitamins/Minerals TAB PO SCH (10:02)
[2021-10-27] MEDS: Polyethylene Glycol 3350 17 GM PACKET PO SCH (10:03)
[2021-10-27] MEDS: Enoxaparin 40 MG/0.4 ML SYR SUBCUT SCH (20:24)
[2021-10-28] MEDS: Multivitamins/Minerals TAB PO SCH (08:41)
[2021-10-28] MEDS: Polyethylene Glycol 3350 17 GM PACKET PO SCH (08:43)
[2021-10-28] MEDS: Enoxaparin 40 MG/0.4 ML SYR SUBCUT SCH (21:54)
[2021-10-29] MEDS: Multivitamins/Minerals TAB PO SCH (08:50)
[2021-10-29] MEDS: Polyethylene Glycol 3350 17 GM PACKET PO SCH (09:30)
[2021-10-29] MEDS: Enoxaparin 40 MG/0.4 ML SYR SUBCUT SCH (20:47)
[2021-10-30] MEDS: Polyethylene Glycol 3350 17 GM PACKET PO SCH (08:47)
[2021-10-30] MEDS: Multivitamins/Minerals TAB PO SCH (08:48)
[2021-10-30] MEDS: Enoxaparin 40 MG/0.4 ML SYR SUBCUT SCH (20:35)
[2021-10-31] MEDS: Polyethylene Glycol 3350 17 GM PACKET PO SCH (08:26)
[2021-10-31] MEDS: Multivitamins/Minerals TAB PO SCH (08:27)
[2021-10-31] MEDS: Enoxaparin 40 MG/0.4 ML SYR SUBCUT SCH (20:35)
[2021-11-01] MEDS: Polyethylene Glycol 3350 17 GM PACKET PO SCH (11:34)
[2021-11-01] MEDS: Multivitamins/Minerals TAB PO SCH (11:36)
[2021-11-01] MEDS: Enoxaparin 40 MG/0.4 ML SYR SUBCUT SCH (21:58)
[2021-11-02] MEDS: Multivitamins/Minerals TAB PO SCH (08:09)
[2021-11-02] MEDS: Polyethylene Glycol 3350 17 GM PACKET PO SCH (08:10)
[2021-11-02] MEDS: Enoxaparin 40 MG/0.4 ML SYR SUBCUT SCH (20:06)
[2021-11-03] MEDS: Multivitamins/Minerals TAB PO SCH (08:08)
[2021-11-03] MEDS: Polyethylene Glycol 3350 17 GM PACKET PO SCH (08:11)
[2021-11-03] MEDS: Enoxaparin 40 MG/0.4 ML SYR SUBCUT SCH (20:02)
[2021-11-04] MEDS: Polyethylene Glycol 3350 17 GM PACKET PO SCH (09:18)
[2021-11-04] MEDS: Multivitamins/Minerals TAB PO SCH (09:20)
[2021-11-04 10:42] LABS: ABS Eosinophils 0.1 10^3/ul (0-0.6); ABS Lymphocytes 1.5 10^3/ul (1.0-4.8); ABS Monocytes 0.4 10^3/ul (0-0.8); Hematocrit 42 % (42-52); Hemoglobin 14.3 g/dL (14.0-18.0); Lymphocyte % 18.8 %; Mean Corpuscular HGB Conc 34 g/dL (31-36); Mean Corpuscular Hemoglobin 33 pg (27-31); Mean Corpuscular Volume 97 fL (80-94); Mean Platelet Volume 7.5 fL (7.4-10.4); Platelet Count 274 10^3/uL (150-450); Red Blood Count 4.36 10^6 /uL (4.18-5.48); Red Cell Distribution Width 13 % (10-15); White Blood Count 8.1 10^3/uL (3.5-10.8)
[2021-11-04 11:00] LABS: Albumin 3.8 g/dL (3.2-5.2); Albumin/Globulin Ratio 1.4 (1-3); Globulin 2.7 g/dL (2-4); Potassium 4.8 mmol/L (3.5-5.0); Total Bilirubin 0.4 mg/dL (0.2-1.0); Total Protein 6.5 g/dL (6.4-8.9); eGFR CKD-EPI 77.2 (>60)
[2021-11-04 11:41] LABS: PSA Screening Total 0.034 ng/mL (0-4.000)
[2021-11-04] MEDS: Enoxaparin 40 MG/0.4 ML SYR SUBCUT SCH (20:55)
[2021-11-05 07:28] VITALS: BP 112/74
[2021-11-05] MEDS: Polyethylene Glycol 3350 17 GM PACKET PO SCH (09:06)
[2021-11-05] MEDS: Multivitamins/Minerals TAB PO SCH (09:06)
== END 2021-11-05 13:20 | disposition home health service (06) | DRG 177 ==
LOC: MED 13:51 → SUATTDRO 13:51 → SSU 10-28 12:05
PROVIDERS: ADMIT Student in an Organized Health Care Education/Training Program; ATTEND Hospitalist